=== PATIENT | female | born 1985 | race Two or more races ===

== ENCOUNTER 2019-05-18 12:11 | Emergency (ER) | payer OTHER ==
[~2019-05-18] VITALS: Ht 165.1 cm; Wt 127.0 kg
[2019-05-18] MEDS ORDERED: LANTUS SOL100 UNIT/1 SUBQ (12:21)
[2019-05-18] MEDS ORDERED: METFORMIN HCL1000 M1 ORAL (12:21)
[2019-05-18 13:00] VITALS: BP 121/76
--- NOTE | 2019-05-18 13:02 | NUR ---
ED Nurse Note: first contact with pt. Pt came in due to burning sensation on bilateral eyes for last 1 hour. Denies putting any contacts, lotion,or touched by any object/hands. Denies any vision changes. Swelling noted on under eyes on bilateral side.
--- NOTE | 2019-05-18 13:49 | Emergency Room Report ---
History of Present Illness General Chief Complaint: Eye Problems Source: Medical Record Present Illness HPI 33 YO Female presents to the ED c/o /10 in severity acute burning sensation with redness under the eyes x 1 hours. no trauma, mild itching. Denies: Pain, Discharge, Redness, Loss of vision, Floaters, Flashing lights, Diplopia/blurry vision, Increased tearing. Denies pain with eye movements. Denies sneezing or rhinorrhea. Denies contact lens use. Pt. wears glasses. Pt. denies fevers, chills or swollen tender lymph nodes. Denies lesions/rashes elsewhere on the body. Denies new medications or body washes or creams. Denies swelling of the lips, tongue , throat or airway. Denies wheezing, or shortness of breath. Denies recent travel, recent illness or ill contacts. denies blisters, oral lesions, or sloughing of the skin. Allergies: Coded Allergies: GABAPENTIN (Verified Allergy, Unknown, 05/18/19) Patient History Past Medical History: see triage record Past Surgical History: none Pertinent Family History: none Last Menstrual Period: 04/26/19 Now: No Reviewed Nursing Documentation: PMH: Agreed; PSxH: Agreed Nursing Documentation-PMH Past Medical History: No History, Except For Hx Diabetes: Yes - autoimmune Review of Systems All Other Systems: negative except mentioned in HPI Physical Exam Vital Signs Date Time Temp Pulse Resp B/P (MAP) Pulse Ox O2 Delivery O2 Flow Rate FiO2 05/18/19 12:17 98.2 89 18 121/76 (91) 97 Room Air Sp02 EP Interpretation: reviewed, normal General Appearance: no apparent distress, alert, GCS 15, non-toxic Head: normocephalic, atraumatic Eyes: bilateral eye normal inspection, bilateral eye PERRL, bilateral eye abnormal EOM, bilateral eye other - erythema and mild swelling noted bilaterally under both eyes/ lower eyelids, does not cross nasal bridge. no D/ c or conjunctival erythema. no photophobia. Does not overlay the zygomatic bones. ENT: hearing grossly normal, normal voice Neck: full range of motion Respiratory: lungs clear, normal breath sounds, no wheezing, speaking full sentences Cardiovascular #1: regular rate, rhythm Musculoskeletal: gait/station normal, normal range of motion, non-tender Neurologic: alert, oriented x3, responsive, motor strength/tone normal, sensory intact, speech normal, grossly normal Psychiatric: judgement/insight normal Skin: rash - See ENT area Lymphatic: no adenopathy Medical Decision Making PA Attestation Dr. Savage is my supervising Physician whom patient management has been discussed with. Diagnostic Impression: Primary Impression: Acute contact dermatitis ER Course 33 YO Female presents to the ED c/o 12/15 in severity acute burning sensation with redness under the eyes x 1 hours. no trauma, mild itching. Denies: Pain, Discharge, Redness, Loss of vision, Floaters, Flashing lights, Diplopia/blurry vision, Increased tearing. Denies pain with eye movements. Denies sneezing or rhinorrhea. Denies contact lens use. Pt. wears glasses. Pt. denies fevers, chills or swollen tender lymph nodes. Denies lesions/rashes elsewhere on the body. Denies new medications or body washes or creams. Denies swelling of the lips, tongue , throat or airway. Denies wheezing, or shortness of breath. Denies recent travel, recent illness or ill contacts. denies blisters, oral lesions, or sloughing of the skin Ddx considered but are not limited to: corneal abrasion, acute glaucoma, globe rupture, FB, Corneal Ulcer, conjunctivitis. Iridis Vital signs: are WNL, pt. is afebrile H&PE are most consistent with: contact dermatitis of the under eye area. ORDERS: - irrigation/ cleaning performed in ED. ED INTERVENTIONS: irrigation/ cleaning performed in ED. DISCHARGE: At this time pt. is stable for d/c to home. Will provide printed patient care instructions, and any necessary prescriptions. Care plan and follow up instructions have been discussed with the patient prior to discharge. . Last Vital Signs Date Time Temp Pulse Resp B/P (MAP) Pulse Ox O2 Delivery O2 Flow Rate FiO2 05/18/19 13:00 98.2 89 18 121/76 97 Room Air Status: improved Disposition: HOME, SELF-CARE Condition: Stable Scripts Hydrocortisone/Aloe Vera 1%* (HYDROCORTISONE-ALOE 1% CREAM*) Y Cr 1 APPLIC TOPIC Q6H PRN for Itching, #30 GM Prov: Erlinda Gandhi 05/18/19 Olopatadine Hcl (PATADAY) 2.5 Ml Drops 1 DRP OP DAILY, #2.5 ML Prov: Erlinda Gandhi 05/18/19 Departure Forms: Return to Work Return to Work Date: May 21, 2019 Work Restrictions: None Other Restrictions: May return Sooner if Symptoms have resolved. Return to Full Activity: May 21, 2019 Patient Instructions: Contact Dermatitis, [id number] Additional Instructions: Take medications as directed. Follow up with a Primary Care Provider in 3-5 days for DERMATOLOGY REFERRAL , even if your symptoms have resolved. Return sooner to ED if new symptoms occur, or current symptoms become worse. - Please note that this Emergency Department Report was dictated using [employer] software, occasionally this can lead to erroneous entry secondary to interpretation by the dictation equipment. Erlinda Gandhi May 18, 2019 13:49
[2019-05-18] MEDS ORDERED: PATADAY2.5 ML OP (13:50)
[2019-05-18] MEDS ORDERED: HYDROCORTISONE-30 GM TOPIC (13:50)
--- NOTE | 2019-05-18 14:00 | NUR ---
ED Nurse Note: irrigation is done per Erlinda HOYOS's verbal order.
--- NOTE | 2019-05-18 14:08 | NUR ---
ED Nurse Note: Pt cleared by health care Provider for discharge. DC instructions/prescription was given and explained to pt and verbalized understanding of teachings. All medical deviecs such as ID band removed. Pt is AAO x4, ambulatory and left with all personal belongings.
== END 2019-05-18 14:30 | disposition home or self-care (01) ==
LOC: EMR 14:16
DX: L25.9 Unspecified contact dermatitis, unspecified cause (principal); Z88.8 Allergy status to other drugs, medicaments and biological substances; E11.9 Type 2 diabetes mellitus without complications
CPT/HCPCS: 99282